=== PATIENT | female | born 1990 | race American Indian/Alaskan Native ===

== ENCOUNTER 2016-08-28 14:33 | Emergency (ER) | payer OTHER ==
[2016-08-28 15:01] VITALS: BP 142/69
[2016-08-28] MEDS ORDERED: MOTRIN PO ONE (16:10)
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
== END 2016-08-28 17:54 | disposition home or self-care (01) ==
LOC: ED 14:33
DX: S16.1XXA Strain of muscle, fascia and tendon at neck level, initial encounter (principal); S13.4XXA Sprain of ligaments of cervical spine, initial encounter; V89.2XXA Person injured in unspecified motor-vehicle accident, traffic, initial encounter; Y93.89 Activity, other specified; Y92.89 Other specified places as the place of occurrence of the external cause; Y99.8 Other external cause status
CPT/HCPCS: 72125; 99283